=== PATIENT | female | born 2000 | race Caucasian/White ===

== ENCOUNTER 2023-08-31 08:13 | Outpatient (AMB) | payer OTHER, SELFPAY ==
[2023-08-31 08:15] VITALS: BP 142/90; PULSE 126; TEMP 36.8; O2SAT 98; BMI 37.5
--- NOTE | 2023-08-31 08:15 | AM.OFFWIN_ITS ---
Intake Vital Signs 08/31/23 08:15 Height 5 ft 3 in Weight 211 lb 8 oz BMI 37.5 BP 142/90 H Blood Pressure Location Rt brachial Position Sitting Pulse 126 H Pulse Source Pulse Oximeter Temp 98.2 F Temp Source Oral Pulse Oximetry (%) 98 Oxygen Delivery Method Room Air Intake Visit Reasons: Cannot hear/White chunks in throat [phone] [id number] Intake Note: Pt presents to the office today for c/o not being being able to hear well and white in her throat. Pt states the ear pain started last week in her left ear which lasted for a day and now she states they just feel blocked. She states her throat was very painful over the weekend but has improved. She states she noticed white spots on her tonsils. Allergies No Known Allergies Allergy (Verified 08/31/23 08:34) Medication List - Last Reconciled 08/31/23 by Nik Mc MD fluoxetine 20 mg PO DAILY levonorgestrel-ethinyl estrad 0.1-20 mg-mcg (Vienva) 1 tab PO DAILY HPI Cannot hear/White chunks in throat [phone] HPI Details Patient presents for a sick visit. Reporting symptoms of sinus congestion, sore throat and difficulty swallowing. Low-grade fever. No family member is sick. No recent travel. Patient reports symptoms of malaise and fatigue. [facility] Social History (Updated 08/31/23 @ 08:18 by Lexi Edmond MA) Household Members: Family Housing: House Alcohol intake: current Alcohol intake frequency: holidays/special occasions only Patient Tobacco Use Status: Never used Tobacco Use of substances other than those prescribed or required for medical reasons: No Physical Exam Vital Signs: Last Vital Signs Temp 98.2 F 08/31/23 08:15 Pulse 126 H 08/31/23 08:15 BP 142/90 H 08/31/23 08:15 Pulse Ox 98 08/31/23 08:15 Oxygen Delivery Method Room Air 08/31/23 08:15 BMI result Body Mass Index 37.5 Const General: cooperative and healthy appearing Nutritional Appearance: well nourished Orientation/consciousness: patient oriented x3 Limitations: no limitations HEENT Other: Throat: Tonsillar exudates. positive posterior pharyngeal wall congestion Head: Yes normal to inspection Eyes General: appearance normal, both eyes and all related structures Neck Neck: Yes normal visual inspection Chest Chest palpation & inspection: normal palpation of entire chest wall Resp Effort & Inspection: normal respiratory effort Neuro General: patient oriented x3 Results AMB Rapid Strep AMB Rapid Strep Negative Last Edit by Lexi Edmond MA on 08/31/23 08:30 Results Reviewed Results Reviewed: Laboratory Last Values Strep Scn [facility] Negative 08/31/23 08:30 Assessment & Plan Assessment & Plan (1) Upper respiratory tract infection: Code(s): J06.9 - Acute upper respiratory infection, unspecified Plan: Antibiotics ordered. Increase fluid intake. Tylenol for aches and pains. If symptoms worsen, follow-up here for a recheck. Orders: Orders AMB Rapid Strep Screen Today Z13.9 - Encounter for screening, unspecified Coding Level of Care Code Est Pt Level 3 (05434) Diagnoses Upper respiratory tract infection J06.9
== END 2023-08-31 09:00 | disposition home or self-care (01) ==
PROVIDERS: PCP Nurse Practitioner; Visit Provider Internal Medicine
DX: Z13.9 Encounter for screening, unspecified (principal); J06.9 Acute upper respiratory infection, unspecified
CPT/HCPCS: 87880; 99213